=== PATIENT | female | born 1965 | race African-American/Black ===

== ENCOUNTER 2018-04-21 05:37 | Day surgery (SDC) | payer MEDICARE, OTHER ==
[2018-04-21] MEDS ORDERED: LIDOCAINE HCL/PF 1% 30 ML SDV ONE (06:22)
[2018-04-21] MEDS ORDERED: ANESTHESIA TRAY IN PYXIS 1 EA TRAY MC ONE (06:22)
[2018-04-21] MEDS ORDERED: oxyCODONE/APAP (5/325 MG) 1 UDTAB TABLET ONE (08:27)
== END 2018-04-21 09:25 | disposition home or self-care (01) ==
LOC: DS 05:37
PROVIDERS: ATTEND Specialist
DX: S83.242A Other tear of medial meniscus, current injury, left knee, initial encounter (principal); S83.282A Other tear of lateral meniscus, current injury, left knee, initial encounter; M94.262 Chondromalacia, left knee; M65.9 Synovitis and tenosynovitis, unspecified; X58.XXXA Exposure to other specified factors, initial encounter; Y93.89 Activity, other specified; Y92.89 Other specified places as the place of occurrence of the external cause; Y99.8 Other external cause status; I10 Essential (primary) hypertension
CPT/HCPCS: 29880; 88304; 88311; A4217; A6402; J0690; J1100; J1885; J2704; J3490 ×2; J7030; Z7610 ×2